=== PATIENT | male | born 1945 | race Caucasian/White ===

== ENCOUNTER 2018-04-14 21:50 | Inpatient (IN) | payer OTHER ==
[~2018-04-14] VITALS: Ht 180.3 cm; Wt 86.2 kg
[~2018-04-14 21:50] MED LIST: GLUCOPHAGE1000 MG PO; LO-DOSE ASPIRIN81 M2 PO
[2018-04-15 09:07] VITALS: BP 140/70
[2018-04-15 21:49] VITALS: BP 118/69
[2018-04-15 23:51] VITALS: BP 151/82
[2018-04-16 06:55] LABS: HEMATOCRIT 38.3 % (38.0-50.0); MCV 91.8 FL (86-99)
[2018-04-16 07:00] LABS: HEMOGLOBIN 12.3 G/DL (12.5-16.6)
[2018-04-16 07:36] VITALS: BP 113/66
[2018-04-16] MEDS ORDERED: OXYCODONE HCL5 MG PO (09:07)
== END 2018-04-16 10:49 | disposition home or self-care (01) | DRG 483 ==
LOC: ENRESERV 21:50 → 3EAST 04-15 07:27 → 2SOUTH 04-15 07:27 → ENRESERV 04-15 19:17 → 3EAST 04-15 21:38
PROVIDERS: Orthopaedic Surgery
PROC: 0RRK00Z Replacement of Left Shoulder Joint with Reverse Ball and Socket Synthetic Substitute, Open Approach (ICD-10-PCS; principal; 2018-04-15)
DX: M19.012 Primary osteoarthritis, left shoulder (principal); E11.9 Type 2 diabetes mellitus without complications; Z87.891 Personal history of nicotine dependence; Z79.84 Long term (current) use of oral hypoglycemic drugs; Z79.82 Long term (current) use of aspirin
CPT/HCPCS: 82948; 85014; 85018; 93005; C1713; J0690; J1100; J1170; J2250; J2405; J2710; J2795; J3010; J7030; J7050; J7643